=== PATIENT | male | born 1990 | race African-American/Black ===

== ENCOUNTER 2019-09-28 11:15 | Emergency (ER) | payer SELFPAY ==
[~2019-09-28] VITALS: Ht 180.3 cm; Wt 81.0 kg
[2019-09-28 12:10] VITALS: BP 147/82
[2019-09-28] MEDS ORDERED: IBUPROFEN 800MG TABLET PO ONE (12:45)
== END 2019-09-28 15:27 | disposition home or self-care (01) ==
LOC: ER 11:15
DX: J06.9 Acute upper respiratory infection, unspecified (principal); R50.9 Fever, unspecified
CPT/HCPCS: 71045; 87804; 99284